=== PATIENT | male | born 1995 | race Caucasian/White ===

== ENCOUNTER 2016-12-30 21:07 | Inpatient (IN) | payer OTHER ==
[~2016-12-30] VITALS: Ht 177.8 cm; Wt 72.6 kg
[2016-12-31] MEDS ORDERED: MAGNESIUM HYDROXIDE 30 ML LIQUID UDC PO PRN
[2016-12-31] MEDS ORDERED: ACETAMINOPHEN 325 MG TABLET PO PRN
[2016-12-31] MEDS ORDERED: LOPERAMIDE HCL 2 MG CAPSULE PO PRN ×2
[2016-12-31] MEDS ORDERED: CLONIDINE HCL 0.1 MG TABLET PO PRN
[2016-12-31] MEDS ORDERED: LORAZEPAM 1 MG TABLET PO PRN ×2
[2016-12-31] MEDS ORDERED: LORAZEPAM 2 MG/1 ML VIAL IM PRN
[2016-12-31] MEDS ORDERED: BUPRENORPHINE HCL 2 MG TAB.SUBL SL PRN
[2016-12-31] MEDS ORDERED: ONDANSETRON 4 MG/2 ML VIAL IM PRN
[2016-12-31] MEDS ORDERED: MIRALAX 17 GM POWD.PACK PO PRN
[2016-12-31] MEDS ORDERED: METHOCARBAMOL 750 MG TABLET PO PRN
[2016-12-31] MEDS ORDERED: MAG HYDROX/AL HYDROX/SIMETH 30 ML LIQUID UDC PO PRN
[2016-12-31] MEDS ORDERED: ONDANSETRON ODT 4 MG TAB.RAPDIS SL PRN
[2016-12-31] MEDS ORDERED: DICYCLOMINE HCL 20 MG TABLET PO PRN
[2016-12-31 00:30] VITALS: BP 108/53
[2016-12-31] MEDS ORDERED: THIAMINE HCL 200 MG/2 ML VIAL IM ONE ×2 (01:00→06:00)
[2016-12-31 04:44] VITALS: BP 98/60
[2016-12-31 08:39] VITALS: BP 97/60
[2016-12-31] MEDS: THIAMINE HCL 100 MG TABLET PO SCH (08:40)
[2016-12-31] MEDS: FOLIC ACID 1 MG TABLET PO SCH (08:40)
[2016-12-31] MEDS: MULTIVITAMINS,THERAPEUTIC TABLET PO SCH (08:40)
[2016-12-31] MEDS ORDERED: TUBERCULIN,PURIF.PROT.DERIV. 5 TU/0.1 ML TEST ID ONE (09:00)
[2016-12-31 09:35] LABS: *AMPHETAMINE, URINE NEGATIVE (NEGATIVE); *BARBITURATE, URINE NEGATIVE (NEGATIVE); *CANNABINOID, URINE POSITIVE (NEGATIVE); *COCCAINE, URINE NEGATIVE (NEGATIVE); *OPIATE, URINE POSITIVE (NEGATIVE); *PHENCYCLIDINE SCREEN,URINE NEGATIVE (NEGATIVE)
[2016-12-31] MEDS ORDERED: DIAZEPAM 10 MG TABLET PO PRN ×2 (13:45)
[2016-12-31] MEDS ORDERED: DIAZEPAM 5 MG TABLET PO PRN (13:45)
[2016-12-31 14:00] VITALS: BP 104/66
[2016-12-31] MEDS: BUPRENORPHINE HCL 2 MG TAB.SUBL SL SCH ×3 (14:24→21:26)
[2016-12-31] MEDS: DIAZEPAM 10 MG TABLET PO SCH ×3 (14:24→21:26)
[2016-12-31 15:00] LABS: ALANINE AMINOTRANSFERASE 273 U/L (16-63); ALBUMIN 3.7 g/dL (3.4-5.0); ALKALINE PHOSPHATASE 67 U/L (50-136); AMYLASE 53 U/L (25-115); ASPARTATE AMINOTRANSFERASE 146 U/L (15-37); BILIRUBIN,TOTAL 0.4 mg/dL (0.2-1.0); CALCIUM 8.7 mg/dL (8.5-10.1); CARBON DIOXIDE 32 mmol/L (21-32); CHLORIDE 104 mmol/L (98-107); CREATININE 0.9 mg/dL (0.6-1.3); GFR 105 mL/min (>60); GLUCOSE 93 mg/dL (74-106); LIPASE 72 U/L (73-393); MAGNESIUM 1.8 mg/dL (1.8-2.4); POTASSIUM 3.9 mmol/L (3.5-5.1); SODIUM SERUM 141 mmol/L (136-145); TOTAL PROTEIN, SERUM 7.1 g/dL (6.4-8.2); UREA NITROGEN, BLOOD 11 mg/dL (7-18)
[2016-12-31 15:05] LABS: ETHANOL < 3 MG/DL (0-0)
[2016-12-31 15:10] LABS: THYROID STIMULATING HORMONE 0.462 mIU/mL (0.358-3.740)
[2016-12-31 15:13] LABS: BASOPHILS % (AUTO) 0.6 % (0.0-2.0); EOSINOPHILS # (AUTO) 0.3 K/uL (0.0-0.7); EOSINOPHILS % (AUTO) 5.1 % (0.0-7.0); HEMATOCRIT 43.2 % (40.0-50.0); HEMOGLOBIN 14.6 g/dL (14.0-18.0); LYMPHOCYTES # (AUTO) 2.6 K/uL (0.8-4.8); LYMPHOCYTES % (AUTO) 45.9 % (20.5-51.5); MEAN CORPUSCULAR HEMOGLOBIN 28.6 uug (27.0-31.0); MEAN CORPUSCULAR HGB CONC 34 g/dL (32.0-37.0); MEAN CORPUSCULAR VOLUME 84.4 fL (82.0-92.0); MONOCYTES # (AUTO) 0.5 K/uL (0.1-1.30); MONOCYTES % (AUTO) 9.2 % (0.0-11.0); NEUTROPHILS # (AUTO) 2.2 K/uL (1.8-8.9); NEUTROPHILS % (AUTO) 39.2 % (38.5-71.5); PLATELET COUNT (AUTO) 198 K/uL (150-450); RED BLOOD CELL COUNT(AUTO) 5.11 MIL/uL (4.70-6.10); RED CELL DISTRIBUTION WIDTH 12.7 % (11.5-14.5); WHITE BLOOD COUNT (AUTO) 5.6 K/uL (4.0-11.2)
[2016-12-31 15:19] LABS: HIV-1 p24 ANTIGEN NON REACTIVE (NONREACTIVE); HIV-1/2 ANTIBODY NON REACTIVE (NONREACTIVE)
[2016-12-31] MEDS: IBUPROFEN 600 MG TABLET PO PRN ×2 (16:11→22:42)
[2016-12-31 17:30] VITALS: BP 131/81
[2016-12-31] MEDS: GABAPENTIN 400 MG CAPSULE PO SCH ×2 (18:17→21:26)
[2016-12-31 20:20] VITALS: BP 127/67
[2016-12-31] MEDS: diphenhydrAMINE 50 MG CAPSULE PO PRN (22:48)
[2017-01-01 00:32] VITALS: BP 109/63
[2017-01-01 04:15] VITALS: BP 98/61
[2017-01-01] MEDS: PANTOPRAZOLE SODIUM 40 MG TABLET.DR PO SCH (06:17)
[2017-01-01 08:15] VITALS: BP 100/60
[2017-01-01] MEDS: DIAZEPAM 10 MG TABLET PO SCH ×3 (08:40→20:56)
[2017-01-01] MEDS: GABAPENTIN 400 MG CAPSULE PO SCH (08:40)
[2017-01-01] MEDS: MULTIVITAMINS,THERAPEUTIC TABLET PO SCH (08:40)
[2017-01-01] MEDS: FOLIC ACID 1 MG TABLET PO SCH (08:40)
[2017-01-01] MEDS: THIAMINE HCL 100 MG TABLET PO SCH (08:40)
[2017-01-01] MEDS: BUPRENORPHINE HCL 2 MG TAB.SUBL SL SCH ×3 (08:41→20:56)
[2017-01-01 12:45] VITALS: BP 138/83
[2017-01-01] MEDS: IBUPROFEN 600 MG TABLET PO PRN ×2 (12:47→22:54)
[2017-01-01] MEDS: GABAPENTIN 300 MG CAPSULE PO SCH ×3 (12:59→20:56)
[2017-01-01] MEDS ORDERED: GABAPENTIN 400 MG CAPSULE PO SCH (13:00)
[2017-01-01] MEDS ORDERED: DIAZEPAM 10 MG TABLET PO ONE (13:00)
[2017-01-01] MEDS: HYDROXYZINE PAMOATE 25 MG CAPSULE PO PRN ×2 (13:36→22:54)
[2017-01-01] MEDS: CLONIDINE HCL 0.1 MG TABLET PO SCH ×2 (14:08→20:58)
[2017-01-01] MEDS: BACLOFEN 20 MG TABLET PO SCH ×2 (14:08→20:56)
[2017-01-01 17:00] VITALS: BP 134/94
[2017-01-01 20:51] VITALS: BP 131/74
[2017-01-01] MEDS: MUPIROCIN 2% OINT 22 GM TUBE NS SCH (20:55)
[2017-01-01] MEDS ORDERED: BISACODYL 10 MG SUPP.RECT RC PRN (22:00)
[2017-01-01] MEDS ORDERED: BISACODYL 5 MG TABLET.DR PO ONE ×2 (22:14→22:15)
[2017-01-01] MEDS: diphenhydrAMINE 50 MG CAPSULE PO PRN (22:54)
[2017-01-02 00:20] VITALS: BP 106/66
[2017-01-02 04:25] VITALS: BP 109/69
[2017-01-02] MEDS: PANTOPRAZOLE SODIUM 40 MG TABLET.DR PO SCH (06:40)
[2017-01-02 08:00] VITALS: BP 120/73
[2017-01-02] MEDS: CLONIDINE HCL 0.1 MG TABLET PO SCH ×3 (08:55→15:00)
[2017-01-02] MEDS: DIAZEPAM 5 MG TABLET PO SCH ×4 (08:55→22:02)
[2017-01-02] MEDS: FOLIC ACID 1 MG TABLET PO SCH (08:55)
[2017-01-02] MEDS: MULTIVITAMINS,THERAPEUTIC TABLET PO SCH (08:55)
[2017-01-02] MEDS: GABAPENTIN 300 MG CAPSULE PO SCH ×4 (08:55→22:01)
[2017-01-02] MEDS: BACLOFEN 20 MG TABLET PO SCH ×3 (08:55→22:01)
[2017-01-02] MEDS: THIAMINE HCL 100 MG TABLET PO SCH (09:00)
[2017-01-02] MEDS ORDERED: BUPRENORPHINE HCL 2 MG TAB.SUBL SL SCH (09:00)
[2017-01-02] MEDS: MUPIROCIN 2% OINT 22 GM TUBE NS SCH ×2 (09:04→21:00)
[2017-01-02 09:05] LABS: ALBUMIN 3.3 g/dL (3.4-5.0); BILIRUBIN,DIRECT 0.1 mg/dL (0.0-0.2); BILIRUBIN,TOTAL 0.2 mg/dL (0.2-1.0); CALCIUM 8.3 mg/dL (8.5-10.1); CREATININE 0.8 mg/dL (0.6-1.3); MAGNESIUM 1.8 mg/dL (1.8-2.4); POTASSIUM 3.9 mmol/L (3.5-5.1); TOTAL PROTEIN, SERUM 6.2 g/dL (6.4-8.2)
[2017-01-02 09:13] LABS: BASOPHILS % (AUTO) 0.7 % (0.0-2.0); EOSINOPHILS # (AUTO) 0.3 K/uL (0.0-0.7); EOSINOPHILS % (AUTO) 4.9 % (0.0-7.0); HEMATOCRIT 40.8 % (40.0-50.0); HEMOGLOBIN 14.1 g/dL (14.0-18.0); LYMPHOCYTES # (AUTO) 2.6 K/uL (0.8-4.8); LYMPHOCYTES % (AUTO) 45.6 % (20.5-51.5); MEAN CORPUSCULAR HEMOGLOBIN 28.8 uug (27.0-31.0); MEAN CORPUSCULAR HGB CONC 35 g/dL (32.0-37.0); MEAN CORPUSCULAR VOLUME 83.5 fL (82.0-92.0); MONOCYTES # (AUTO) 0.5 K/uL (0.1-1.30); MONOCYTES % (AUTO) 9.2 % (0.0-11.0); NEUTROPHILS # (AUTO) 2.2 K/uL (1.8-8.9); NEUTROPHILS % (AUTO) 39.6 % (38.5-71.5); PLATELET COUNT (AUTO) 186 K/uL (150-450); RED BLOOD CELL COUNT(AUTO) 4.89 MIL/uL (4.70-6.10); RED CELL DISTRIBUTION WIDTH 12.6 % (11.5-14.5); WHITE BLOOD COUNT (AUTO) 5.6 K/uL (4.0-11.2)
[2017-01-02 12:00] VITALS: BP 127/68
[2017-01-02] MEDS: BISACODYL 5 MG TABLET.DR PO PRN (14:35)
[2017-01-02] MEDS: BENZOCAINE ORAL CARE 12 ML BOTTLE MM PRN (15:30)
[2017-01-02] MEDS: BUPRENORPHINE HCL 2 MG TAB.SUBL SL SCH ×2 (15:30→22:02)
[2017-01-02 16:00] VITALS: BP 116/74
[2017-01-02] MEDS ORDERED: CLONIDINE HCL 0.1 MG TABLET PO PRN (16:00)
[2017-01-02] MEDS: IBUPROFEN 600 MG TABLET PO PRN (16:07)
[2017-01-02 20:00] VITALS: BP 114/65
[2017-01-03] VITALS: BP 131/83
[2017-01-03] MEDS: BENZOCAINE ORAL CARE 12 ML BOTTLE MM PRN (02:07)
[2017-01-03] MEDS: BISACODYL 5 MG TABLET.DR PO PRN (02:07)
[2017-01-03] MEDS: diphenhydrAMINE 50 MG CAPSULE PO PRN (02:07)
[2017-01-03] MEDS: IBUPROFEN 600 MG TABLET PO PRN ×2 (02:08→15:17)
[2017-01-03 04:00] VITALS: BP 125/86
[2017-01-03 05:22] LABS: HCV AB >11.0 s/co ratio (0.0-0.9); HEPATITIS B CORE AB, IgM Negative (Negative); HEPATITIS B SURFACE AG Negative (Negative)
[2017-01-03] MEDS: PANTOPRAZOLE SODIUM 40 MG TABLET.DR PO SCH (07:29)
[2017-01-03 08:00] VITALS: BP 108/61
[2017-01-03] MEDS: GABAPENTIN 300 MG CAPSULE PO SCH ×4 (08:56→20:26)
[2017-01-03] MEDS: MULTIVITAMINS,THERAPEUTIC TABLET PO SCH (08:56)
[2017-01-03] MEDS: THIAMINE HCL 100 MG TABLET PO SCH (08:56)
[2017-01-03] MEDS: MUPIROCIN 2% OINT 22 GM TUBE NS SCH ×2 (08:56→20:25)
[2017-01-03] MEDS: BACLOFEN 20 MG TABLET PO SCH ×3 (08:56→20:25)
[2017-01-03] MEDS: DIAZEPAM 5 MG TABLET PO SCH ×3 (08:56→20:26)
[2017-01-03] MEDS: BUPRENORPHINE HCL 2 MG TAB.SUBL SL SCH ×3 (08:56→20:27)
[2017-01-03] MEDS: FOLIC ACID 1 MG TABLET PO SCH (08:56)
[2017-01-03 12:00] VITALS: BP 126/84
[2017-01-03] MEDS ORDERED: LIDOCAINE VISCUS 2% 15 ML UDC MM PRN (13:15)
[2017-01-03] MEDS: HYDROXYZINE PAMOATE 25 MG CAPSULE PO PRN (15:33)
[2017-01-03 16:00] VITALS: BP 134/86
[2017-01-03 20:00] VITALS: BP 131/92
[2017-01-04] VITALS: BP 135/85
[2017-01-04] MEDS: IBUPROFEN 600 MG TABLET PO PRN ×2 (00:45→09:36)
[2017-01-04] MEDS: diphenhydrAMINE 50 MG CAPSULE PO PRN (00:45)
[2017-01-04] MEDS: HYDROXYZINE PAMOATE 25 MG CAPSULE PO PRN ×2 (00:46→21:47)
[2017-01-04 04:00] VITALS: BP 128/78
[2017-01-04] MEDS: PANTOPRAZOLE SODIUM 40 MG TABLET.DR PO SCH (07:21)
[2017-01-04 08:00] VITALS: BP 108/65
[2017-01-04] MEDS ORDERED: DIAZEPAM 5 MG TABLET PO SCH ×2 (09:00)
[2017-01-04] MEDS ORDERED: BUPRENORPHINE HCL 2 MG TAB.SUBL SL SCH (09:00)
[2017-01-04] MEDS: FOLIC ACID 1 MG TABLET PO SCH (09:20)
[2017-01-04] MEDS: MULTIVITAMINS,THERAPEUTIC TABLET PO SCH (09:20)
[2017-01-04] MEDS: THIAMINE HCL 100 MG TABLET PO SCH (09:20)
[2017-01-04] MEDS: BACLOFEN 20 MG TABLET PO SCH ×3 (09:20→21:47)
[2017-01-04] MEDS: MUPIROCIN 2% OINT 22 GM TUBE NS SCH ×2 (09:20→21:56)
[2017-01-04] MEDS: GABAPENTIN 300 MG CAPSULE PO SCH ×4 (09:20→21:47)
[2017-01-04 12:00] VITALS: BP 128/87
[2017-01-04 13:11] LABS: *AMPHETAMINE, URINE NEGATIVE (NEGATIVE); *BARBITURATE, URINE NEGATIVE (NEGATIVE); *CANNABINOID, URINE NEGATIVE (NEGATIVE); *COCCAINE, URINE NEGATIVE (NEGATIVE); *OPIATE, URINE NEGATIVE (NEGATIVE); *PHENCYCLIDINE SCREEN,URINE NEGATIVE (NEGATIVE)
[2017-01-04 16:00] VITALS: BP 116/74
[2017-01-04 20:00] VITALS: BP 139/93
[2017-01-05] VITALS: BP 123/75
[2017-01-05] MEDS: PANTOPRAZOLE SODIUM 40 MG TABLET.DR PO SCH (06:50)
[2017-01-05 08:10] VITALS: BP 124/76
[2017-01-05] MEDS: GABAPENTIN 300 MG CAPSULE PO SCH (08:11)
[2017-01-05] MEDS: BACLOFEN 20 MG TABLET PO SCH (08:11)
[2017-01-05] MEDS: MULTIVITAMINS,THERAPEUTIC TABLET PO SCH (08:11)
[2017-01-05] MEDS: THIAMINE HCL 100 MG TABLET PO SCH (08:11)
[2017-01-05] MEDS: FOLIC ACID 1 MG TABLET PO SCH (08:11)
[2017-01-05] MEDS: MUPIROCIN 2% OINT 22 GM TUBE NS SCH (08:13)
[2017-01-05] MEDS ORDERED: PANT40TA2 PO (08:48)
[2017-01-05] MEDS ORDERED: DIPH50CA37 PO (08:48)
[2017-01-05] MEDS ORDERED: Baclofen PO (08:48)
[2017-01-05] MEDS ORDERED: Ibuprofen PO (08:48)
[2017-01-05] MEDS ORDERED: HYDR-3895 PO (08:48)
[2017-01-05] MEDS ORDERED: Gabapentin PO (08:48)
[2017-01-05] MEDS: IBUPROFEN 600 MG TABLET PO PRN (09:57)
== END 2017-01-05 11:03 | disposition home or self-care (01) | DRG 895 ==
LOC: SRC 23:56
PROVIDERS: ADMIT Internal Medicine; ATTEND Internal Medicine
PROC: HZ2ZZZZ Detoxification Services for Substance Abuse Treatment (ICD-10-PCS; principal; 2016-12-30)
PROC: HZ31ZZZ Individual Counseling for Substance Abuse Treatment, Behavioral (ICD-10-PCS; 2017-01-02)
PROC: HZ41ZZZ Group Counseling for Substance Abuse Treatment, Behavioral (ICD-10-PCS; 2017-01-03)
DX: F11.23 Opioid dependence with withdrawal (principal); F13.230 Sedative, hypnotic or anxiolytic dependence with withdrawal, uncomplicated; B19.20 Unspecified viral hepatitis C without hepatic coma; Z59.0 Homelessness; F17.210 Nicotine dependence, cigarettes, uncomplicated; F10.10 Alcohol abuse, uncomplicated; Y90.9 Presence of alcohol in blood, level not specified; F41.0 Panic disorder [episodic paroxysmal anxiety]; K27.7 Chronic peptic ulcer, site unspecified, without hemorrhage or perforation; Z22.322 Carrier or suspected carrier of Methicillin resistant Staphylococcus aureus; Z76.5 Malingerer [conscious simulation]; F32.9 Major depressive disorder, single episode, unspecified; Z59.1 Inadequate housing
CPT/HCPCS: 36415; 70030-TC; 80307; 83690; 83735; 84443; 85025; 86580; 86592; 86705; 86803; 87340; 87806; A9150; G6040-TC; Q0162; Q0163

== ENCOUNTER 2017-03-01 15:12 | Inpatient (IN) | payer OTHER ==
[~2017-03-01] VITALS: Ht 177.8 cm; Wt 67.1 kg
[~2017-03-01 15:12] MED LIST: Baclofen PO; DIPH50CA37 PO; Gabapentin PO; HYDR-3895 PO; Ibuprofen PO; PANT40TA2 PO
[2017-03-02] VITALS (8 sets, daily range): BP systolic 104–115; BP diastolic 60–76
--- NOTE | 2017-03-02 00:35 | NUR ---
Pre-Admission Pre-admission assessment performed in the intake department of [facility]. Pt is a 21 yo male who is A&O x4 and ambulatory with a steady gait. Pt does not appear intoxicated. He answers all questions appropriately but appears anxious with mild hand tremors. Vitals: B/P 107/60, HR 112, RR 18, O2 sat 98%, T 98.2. He reports generalized body aches and discomfort. Pt states that he has been using Heroin and BZD's. Admission to continue on the [facility] detox unit.
[2017-03-02] MEDS ORDERED: DIAZEPAM 5 MG TABLET PO PRN (01:15)
[2017-03-02] MEDS ORDERED: LOPERAMIDE HCL 2 MG CAPSULE PO PRN ×2 (01:15)
[2017-03-02] MEDS ORDERED: MAG HYDROX/AL HYDROX/SIMETH 30 ML LIQUID UDC PO PRN (01:15)
[2017-03-02] MEDS ORDERED: MIRALAX 17 GM POWD.PACK PO PRN (01:15)
[2017-03-02] MEDS ORDERED: IBUPROFEN 400 MG TABLET PO PRN (01:15)
[2017-03-02] MEDS ORDERED: DIAZEPAM 10 MG TABLET PO PRN ×2 (01:15)
[2017-03-02] MEDS ORDERED: ACETAMINOPHEN 325 MG TABLET PO PRN (01:15)
[2017-03-02] MEDS ORDERED: diphenhydrAMINE 50 MG CAPSULE PO PRN (01:15)
[2017-03-02] MEDS ORDERED: LORAZEPAM 2 MG/1 ML VIAL IM PRN (01:15)
[2017-03-02] MEDS ORDERED: MAGNESIUM HYDROXIDE 30 ML LIQUID UDC PO PRN (01:15)
[2017-03-02] MEDS ORDERED: CLONIDINE HCL 0.1 MG TABLET PO PRN (01:15)
[2017-03-02 01:35] LABS: *AMPHETAMINE, URINE POSITIVE (NEGATIVE); *BARBITURATE, URINE POSITIVE (NEGATIVE); *CANNABINOID, URINE POSITIVE (NEGATIVE); *COCCAINE, URINE POSITIVE (NEGATIVE); *OPIATE, URINE POSITIVE (NEGATIVE); *PHENCYCLIDINE SCREEN,URINE NEGATIVE (NEGATIVE)
[2017-03-02] MEDS: BUPRENORPHINE HCL 2 MG TAB.SUBL SL PRN ×3 (01:42→09:42)
[2017-03-02] MEDS ORDERED: DIAZEPAM 10 MG TABLET ONE (01:43)
--- NOTE | 2017-03-02 01:43 | NUR ---
PRN Subutex and Valium administration Pt c/o chills, body aches, anxiety and restlessness. His pupils are dilated and he is frequently shifting in bed. COWS score 12 and CIWA 10. PRN Subutex and Valium administered.
[2017-03-02] MEDS ORDERED: BUPRENORPHINE HCL 2 MG TAB.SUBL SL ONE ×3 (01:44→14:45)
[2017-03-02] MEDS ORDERED: METHOCARBAMOL 750 MG TABLET ONE (01:45)
--- NOTE | 2017-03-02 02:20 | NUR ---
ADMISSION Pt is a 21 yo male admitted to [facility] on 03/02/17 at 0055 for medically supervised detox. He is A&O and ambulatory with a steady gait. Body and skin check performed and he was oriented to the unit. He does not appear intoxicated and answers all questions appropriately. Pt denies food or drug allergies. Vital signs in intake were B/P 107/60, HR 112, RR 18, O2 sat 98%, T 98.2. He has generalized body aches and discomfort. Pt is 5'10" and weighs 148lbs. He reports poor appetite recently. Lung sounds clear, PERRLA 4mm, brisk capillary refill, bowel sounds present, skin is intact. Last BM was today. He has track sawyer on bilateral upper extremities. History of Use 1) Xanax or Klonopin 5-10mg per day for 2 years. Last used 2mg on 03/01/17 at 0700. He has used BZD's for 9 years. 2) Heroin IV 3 grams per day for the past 2 years. Last used 0.25 grams on 03/01/17 at 0700. He has used heroin for 5 years total. 3) Cocaine IV 0.5 grams "occasionally". Last used 0.25 grams 02/27/17. He has used cocaine for 5 years. 4) Methamphetamine IV 0.5 grams "occasionally". Last used 0.25 grams 02/28/17. He has used methamphetamine for 5 years. 5) LSD 2 tabs "occasionally". Last used 02/25/17. He has used LSD for 5 years. 6) Marijuana 0.5 grams "occasionally". Last used 02/28/17 Treatment History 1) [place], [place] 12/2016 2) [facility] 3) [place], [place] 4) A treatment facility in [place], [place] in 2013 for 30 days Pt smokes 1 pack of cigarettes per day. Pt was at [facility] 12/2016 and relapsed after 2 weeks of sobriety. Symptoms when he doesn't use include "shakey, sweaty, anxious, can't sleep, can't eat, everything hurts". He decided to come to treatment today because, "I got arrested". Pt's longest period of sobriety was "a couple months" in 2014. He currently lives in a car and does not have a primary care physician. COWS on admission is 14 and CIWA 10. Admission orders received. Pt educated regarding use of the call light and all questions answered. Fall and seizure precautions in place. Bed is down with call light in reach. Addendum: 03/02/17 at 0651 by EILEEN CARRILLO RN He has a PMH of Hepatitis C, right shoulder surgery, w/d related seizures, and anxiety. Last seizure was 6 months ago.
--- NOTE | 2017-03-02 02:43 | NUR ---
PRN Subutex and Valium reassessment PRN Subutex and Valium barely effective. Pt reports that he has had very little relief of symptoms. COWS 12 and CIWA 8.
[2017-03-02] MEDS: METHOCARBAMOL 750 MG TABLET PO PRN (02:44)
[2017-03-02] MEDS: HYDROXYZINE PAMOATE 25 MG CAPSULE PO PRN (02:45)
--- NOTE | 2017-03-02 02:45 | NUR ---
PRN Robaxin, Vistaril, and Benadryl Pt reports anxiety, restlessness, chills, body aches, restless legs, and inability to sleep. PRN Robaxin, Vistaril, and Benadryl administered.
[2017-03-02] MEDS ORDERED: HYDROXYZINE PAMOATE 25 MG CAPSULE ONE (02:52)
[2017-03-02] MEDS ORDERED: diphenhydrAMINE 50 MG CAPSULE ONE (02:53)
[2017-03-02 02:58] LABS: BASOPHILS # (AUTO) 0.1 K/uL (0.0-8.0); BASOPHILS % (AUTO) 0.5 % (0.0-2.0); EOSINOPHILS # (AUTO) 0.1 K/uL (0.0-0.7); EOSINOPHILS % (AUTO) 0.3 % (0.0-7.0); HEMATOCRIT 39.1 % (40-50); HEMOGLOBIN 13.9 G/DL (14.0-18.0); LYMPHOCYTES # (AUTO) 1.6 K/UL (0.8-4.8); LYMPHOCYTES % (AUTO) 8.6 % (20.5-51.5); MEAN CORPUSCULAR HEMOGLOBIN 29.3 UUG (27.0-31.0); MEAN CORPUSCULAR HGB CONC 35 g/dL (32.0-37.0); MEAN CORPUSCULAR VOLUME 82.8 FL (82.0-92.0); MONOCYTES # (AUTO) 0.8 K/UL (0.1-1.30); MONOCYTES % (AUTO) 4.1 % (0.0-11.0); NEUTROPHILS % (AUTO) 86.5 % (38.5-71.5); PLATELET COUNT (AUTO) 167 K/UL (150-450); RED BLOOD CELL COUNT(AUTO) 4.72 MIL/UL (4.7-6.1); WHITE BLOOD COUNT (AUTO) 18.6 K/UL (4.0-11.2)
[2017-03-02 03:11] LABS: ETHANOL < 3 MG/DL (0-0)
[2017-03-02 03:14] LABS: ALANINE AMINOTRANSFERASE 136 U/L (16-63); ALKALINE PHOSPHATASE 56 U/L (50-136); ASPARTATE AMINOTRANSFERASE 60 U/L (15-37); BILIRUBIN,TOTAL 0.6 mg/dL (0.2-1.0); CARBON DIOXIDE 30 mmol/L (21-32); CHLORIDE 102 mmol/L (98-107); GLUCOSE 110 mg/dL (74-106); MAGNESIUM 1.8 mg/dL (1.8-2.4); POTASSIUM 3.4 mmol/L (3.5-5.1); TOTAL PROTEIN, SERUM 7.2 g/dL (6.4-8.2); UREA NITROGEN, BLOOD 10 mg/dL (7-18)
--- NOTE | 2017-03-02 03:45 | NUR ---
PRN Robaxin, Vistaril, and Benadryl reassessment PRN Robaxin, Vistaril, and Benadryl barely effective. Pt reports very little relief of symptoms and he is still unable to sleep. Encouraged relaxation.
[2017-03-02] MEDS ORDERED: POTASSIUM CHLORIDE 20 MEQ TAB.PRT.SR PO ONE (04:00)
[2017-03-02] MEDS ORDERED: POTASSIUM CHLORIDE 20 MEQ TAB.PRT.SR ONE (04:13)
--- NOTE | 2017-03-02 04:20 | NUR ---
K Dur administered for K level 3.4
--- NOTE | 2017-03-02 04:25 | NUR ---
PRN Subutex administration Pt c/o chills, body aches, restlessness. His pupils are dilated and he is unable to keeps his legs still when lying in bed. Mild hand tremors observed. COWS score 12. PRN Subutex administered.
--- NOTE | 2017-03-02 07:25 | NUR ---
END OF SHIFT Report provided to day shift nurse. Pt is lying in bed resting. Pt is a 21 yo male admitted to [facility] today for Opiate and BZD dependence. He is A&O and ambulatory. NKA, full code, regular diet. Pt was experiencing s/s of withdrawal upon admission. PRN Subutex x2, Valium, Robaxin, Benadryl, and Vistaril administered. Last COWS 2 and CIWA 2. He drank 1150mL and slept for 2 hours. Fall and seizure precautions in place
--- NOTE | 2017-03-02 07:30 | NUR ---
Start of Shift Report from night nurse: Pt is here for Benzo r/t Xanax or Klonopin 5-10mg/d, Opiates r/t Heroin 3g IV/d, Cocaine 0.5g Occasionally, Methamphetamine 0.5g occas. LSD unknown dosage used occasionally, and Marijuana unknown dose used occasionally; no taper started at this time. Pt is a full code, Regular Diet, NKA, fall and seizure precautions ordered. HHx: Hep C+, Right Shoulder Surgery, Seizures r/t w/d 6 mths ago and anxiety, multiple relapses with returns here. V/S stable, Skin is intact with tracts on BUE's. PRN Subutex with COWS 15-12, gabapentin, Zofran IM, Clonidine and Benadryl to help the pt w/d and to sleep. Last COWS 3 CIWA 3. No new orders or recommendations endorsed to me. Pt is asleep in room. Will cont. to monitor the pt.
[2017-03-02] MEDS ORDERED: CLON1TAB4 PO (07:57)
[2017-03-02] MEDS ORDERED: CLON2TAB4 PO (07:57)
[2017-03-02] MEDS: DICYCLOMINE HCL 20 MG TABLET PO PRN (09:41)
[2017-03-02] MEDS: MULTIVITAMINS,THERAPEUTIC TABLET PO SCH (09:42)
--- NOTE | 2017-03-02 09:42 | NUR ---
PRN Medication Administration Subutex, Valium Pt is in his room very anxiety, restlessness, pacing, c/o sweating, irritable, tremors felt, nausea, general pain 10/10, loss of appetite with breakfast and stomach cramps, has numbness and tingling, V/S stable, COWS 13 CIWA 8; PRN Valium 5mg, Subutex 4mg SL and Bentyl 20mg given with in parameters as ordered, pt refused Zofran. Will reassess in 1H.
--- NOTE | 2017-03-02 11:15 | NUR ---
Reassessment, New Orders Pt is in room resting in bed and no anxiety or irritability noted and denies stomach cramps; Subutex, Valium and Bentyl are effective. New orders for 5 day Subutex, 5 day Valium tapers, and Seroquel 100mg PO qHS. Will cont. to monitor the pt.
[2017-03-02] MEDS: BUPRENORPHINE HCL 2 MG TAB.SUBL SL SCH ×3 (13:25→20:47)
[2017-03-02] MEDS: DIAZEPAM 10 MG TABLET PO SCH ×3 (13:26→20:47)
[2017-03-02] MEDS ORDERED: DIAZEPAM 10 MG TABLET PO ONE (14:45)
[2017-03-02] MEDS ORDERED: GABAPENTIN 300 MG CAPSULE PO SCH (15:00)
--- NOTE | 2017-03-02 16:52 | NUR ---
Therapist encouraged client to attend daily group therapy sessions. Client responded by saying he would try to remember to attend the next group.
[2017-03-02] MEDS: GABAPENTIN 400 MG CAPSULE PO SCH ×2 (17:14→20:47)
--- NOTE | 2017-03-02 19:39 | NUR ---
End of Shift Report to night nurse: Pt is here for Benzo r/t Xanax or Klonopin 5-10mg/d, Opiates r/t Heroin 3g IV/d, Cocaine 0.5g Occasionally, Methamphetamine 0.5g occas. LSD unknown dosage used occasionally, and Marijuana unknown dose used occasionally; New orders for 5d Valium and 5d Subutex tapers ordered and started at 1300 today. Pt is a full code, Regular Diet, NKA, fall and seizure precautions ordered. HHx: Hep C+, Right Shoulder Surgery, Seizures r/t w/d 6 months ago and anxiety, multiple relapses with returns here. V/S stable, SKin is intact with tracts on BUE's. PRN Subutex with COWS 13 0900H, pt refused Zofran after c/o nausea, Valium 5mg CIWA 8, Bentyl 20mg, Seroquel 100mg HS. Last COWS 8 CIWA 9.
--- NOTE | 2017-03-02 20:11 | NUR ---
START OF SHIFT NOTE Pt is a 21 y/o male admitted for Xanax/Klonopin, Heroin, Cocaine, Meth, LSD, and Marijuana dependence and use. Pt has NKA but reported a PMH of Hep C, right shoulder surgery, w/d related seizures (6 months ago), and anxiety. Per day shift nurse pt was placed on a 5 day Valium and Subutex taper (day 1) and is tolerating medication well, with no s/e or a/r reported. Pt received Bentyl 20 mg PO PRN , Valium 5 mg PO PRN , and Subutex 4 mg PO PRN during the day shift. Last COW: 8 and CIWA: 9 (1600) At this time the pt has just returned to his room from a smoke break. Pt stated " I'm doing alright I just want my clothes back from laundry." Pt denies any pain/discomfort. Pt denies any other pain/discomfort. Pt was encouraged to notify staff of any changes in condition or of any concerns. Pt verbalized an understanding. All safety measures in place; side rails up x 2, bed locked and in low position, and call light within reach. Will continue to monitor.
[2017-03-03] VITALS: BP 114/76
[2017-03-03] MEDS: QUETIAPINE FUMARATE 100 MG TABLET PO PRN (00:18)
--- NOTE | 2017-03-03 00:21 | NUR ---
SEROQUEL PRN ADMINISTRATION Pt stated " Can I have something for sleep?" Seroquel 100 mg PO PRN was given. Pt was encouraged to notify staff of any changes in condition or of any concerns. Pt verbalized an understanding. All safety measures in place. Will monitor for effectiveness.
--- NOTE | 2017-03-03 01:21 | NUR ---
SEROQUEL PRN REASSESSMENT Pt is asleep in bed with no signs of discomfort/distress noted. Breathing is even and unlabored. PRN effective. All safety measures in place. Will continue to monitor.
[2017-03-03 04:00] VITALS: BP 93/60
--- NOTE | 2017-03-03 07:28 | NUR ---
END OF SHIFT NOTE Pt is a 21 y/o male admitted for Xanax/Klonopin, Heroin, Cocaine, Meth, LSD, and Marijuana dependence and use. Pt has NKA but reported a PMH of Hep C, right shoulder surgery, w/d related seizures (6 months ago), and anxiety. Pt was placed on a 5 day Valium and Subutex taper (day 2) and is tolerating medication well, with no s/e or a/r reported. Pt received Seroquel 100 mg PO PRN during the shift. Last COW: 0 and CIWA: 0 (0400). Pt slept for total of 6 hours. All safety measures in place; side rails up x 2, bed locked and in low position, and call light within reach. Will endorse to the oncoming nurse.
--- NOTE | 2017-03-03 07:30 | NUR ---
Start Of Shift Report received. Pt is a 21 y/o male admitted for Xanax/Klonopin, Heroin, Cocaine, Meth, LSD, and Marijuana dependence and use. Pt denies any allergies is full code regular diet continues on fall and seizure precautions. PMH of Hep C, right shoulder surgery, w/d related seizures (6 months ago), and anxiety. Pt continues his 5 day Valium and Subutex taper and is tolerating medication well. Pt received Seroquel 100 mg PO PRN last night for insomnia, medication effective per shift supervisor rn nurse. Last COW: 0 and CIWA: 0 (0400). Pt slept for total of 6 hours. fluids encouraged to help facilitate with detox process. All safety measures in place; side rails up x 2, bed locked and in low position, and call light within reach. will continue to monitor and provide support.
[2017-03-03 08:00] VITALS: BP 107/68
[2017-03-03] MEDS ORDERED: TUBERCULIN,PURIF.PROT.DERIV. 5 TU/0.1 ML TEST ID ONE (09:00)
[2017-03-03] MEDS: GABAPENTIN 400 MG CAPSULE PO SCH ×4 (09:00→21:43)
[2017-03-03] MEDS: DIAZEPAM 10 MG TABLET PO SCH ×3 (09:01→21:43)
[2017-03-03] MEDS: MULTIVITAMINS,THERAPEUTIC TABLET PO SCH (09:01)
[2017-03-03] MEDS: BUPRENORPHINE HCL 2 MG TAB.SUBL SL SCH ×3 (09:02→21:43)
[2017-03-03 12:00] VITALS: BP 96/62
[2017-03-03 14:06] LABS: HEPATITIS B SURFACE AG Negative (Negative)
[2017-03-03 16:00] VITALS: BP 120/69
--- NOTE | 2017-03-03 19:15 | NUR ---
End Of Shift Report given. Pt is a 21 y/o male admitted for Xanax/Klonopin, Heroin, Cocaine, Meth, LSD, and Marijuana dependence and use. Pt denies any allergies is full code regular diet continues on fall and seizure precautions. Pt continues his 5 day Valium and Subutex taper and is tolerating medication well. Last COW: 8 and CIWA: 4 (1600). Pt did not receive any PRN medications during my shift. Detox medication effective at reducing withdrawal symptoms. Patient encouraged to attend group therapies/sessions to learn new coping skills to recent relapse, noted attending and participating, patient denies SI/HI. Pt ate all meals total fluid intake was 2566ml with 2 void and 0 bowel movement. Safety measures in place. Call light kept within reach. Patient endorsed to night nurse nurse, all pertinent information discussed.
[2017-03-03 20:00] VITALS: BP 120/62
--- NOTE | 2017-03-03 20:11 | NUR ---
START OF SHIFT NOTE Pt is a 21 y/o male admitted for Xanax/Klonopin, Heroin, Cocaine, Meth, LSD, and Marijuana dependence and use. Pt has NKA but reported a PMH of Hep C, right shoulder surgery, w/d related seizures (6 months ago), and anxiety. Per day shift nurse pt continues on a 5 day Valium and Subutex taper (day 2) and is tolerating medication well, with no s/e or a/r reported. Pt didn't receive any PRNS during the shift. during the day shift. Last COW: 8 and CIWA: 4 (1600). At this time pt just returned to his room. Pt stated " I feel okay I was shaky earlier I'm doing alright." Pt denies any pain/discomfort. Pt denies any other pain/discomfort. Pt was encouraged to notify staff of any changes in condition or of any concerns. Pt verbalized an understanding. All safety measures in place; side rails up x 2, bed locked and in low position, and call light within reach. Will continue to monitor.
[2017-03-04] VITALS: BP 113/76
--- NOTE | 2017-03-04 04:00 | NUR ---
LUDMILA PARAG, VITALS REFUSED Pt refused to be assessed and have vitals taken at this time. Pt was encouraged x 3 with risks and benefits explained, but the pt still refused. All safety measures in place. Will continue to monitor. Addendum: 03/04/17 at 0532 by NETTIE ARRINGTON LVN Amended: Links added.
--- NOTE | 2017-03-04 07:10 | NUR ---
END OF SHIFT NOTE Pt is a 21 y/o male admitted for Xanax/Klonopin, Heroin, Cocaine, Meth, LSD, and Marijuana dependence and use. Pt has NKA but reported a PMH of Hep C, right shoulder surgery, w/d related seizures (6 months ago), and anxiety. Pt continues on a 5 day Valium and Subutex taper (day 3) and is tolerating medication well, with no s/e or a/r reported. Pt didn't receive any PRNS during the shift. Last COW: 0 and CIWA: 0 (0000). Pt slept for total of 7 hours. All safety measures in place; side rails up x 2, bed locked and in low position, and call light within reach. Will endorse to the oncoming nurse.
--- NOTE | 2017-03-04 07:45 | NUR ---
START OF SHIFT Received report from night shift supervisor nurse. 21 year old male patient admitted on 03/02/17 for benzo, cocaine, methamphetamine, and LSD. Pt has been started on a 5 day Valium and 5 day Subutex taper and has been tolerating well. No acute distress over night. Pt is Hep C positive, reports history of withdrawal induced seizures and anxiety. BNo PRN medications were needed or administered at night. Most recent COWS and CIWA 0. Pt is resting in bed at this time. Pt continues to refuse blood draw, pt education provided on importance of being compliant with MD orders. V/S remain WNL. All needs met, safety precautions are in place, will continue to monitor.
[2017-03-04 08:15] VITALS: BP 98/64
[2017-03-04] MEDS ORDERED: BUPRENORPHINE HCL 2 MG TAB.SUBL SL SCH (09:00)
[2017-03-04] MEDS: DIAZEPAM 5 MG TABLET PO SCH ×4 (09:42→21:47)
[2017-03-04] MEDS: GABAPENTIN 400 MG CAPSULE PO SCH (09:42)
[2017-03-04] MEDS: MULTIVITAMINS,THERAPEUTIC TABLET PO SCH (09:42)
--- NOTE | 2017-03-04 09:48 | NUR ---
PRN MIRALAX Pt complains of constipation, fluids encouraged. PRN Miralax administered as ordered, will reassess.
--- NOTE | 2017-03-04 10:50 | NUR ---
REASSESSMENT Miralax was ineffective, pt encouraged to ambulate and drink prune juice.
[2017-03-04] MEDS ORDERED: KETOROLAC TROMETHAMINE 30 MG INJ IM PRN (12:00)
[2017-03-04] MEDS: GABAPENTIN 300 MG CAPSULE PO SCH ×3 (12:48→21:47)
[2017-03-04] MEDS ORDERED: DIAZEPAM 5 MG TABLET PO ONE (13:00)
[2017-03-04] MEDS ORDERED: BUPRENORPHINE HCL 2 MG TAB.SUBL SL ONE (13:00)
[2017-03-04 13:24] VITALS: BP 116/80
[2017-03-04] MEDS: BUPRENORPHINE HCL 2 MG TAB.SUBL SL SCH ×2 (15:09→21:48)
[2017-03-04] MEDS: BACLOFEN 10 MG TABLET PO SCH ×2 (15:09→21:47)
[2017-03-04] MEDS ORDERED: BISACODYL 10 MG SUPP.RECT RC PRN (15:45)
[2017-03-04 17:09] VITALS: BP 125/66
--- NOTE | 2017-03-04 19:05 | NUR ---
END OF SHIFT Endorsed to shift manager nurse. 21 year old male patient admitted on 03/02/17 for benzo, cocaine, methamphetamine, and LSD. Pt has been started on a 5 day Valium and 5 day Subutex taper and has been tolerating well. No acute distress over night. Pt is Hep C positive, reports history of withdrawal induced seizures and anxiety. PRN miralax was administered and not effective. Most recent COWS 5 and CIWA 5. Pt is positive for MRSA of nares, education provided. Contact isolation in place. To start antibx ointment at 2100. Pt continues to refuse blood draw, pt education provided on importance of being compliant with MD orders. V/S remain WNL. Pt encouraged to attend activities and groups, pt stated he felt too sick to go to afternoon group and requested to rest instead. Pt stated he will go to evening group. All needs met, safety precautions are in place, shift manager nurse will continue to monitor.
--- NOTE | 2017-03-04 19:36 | NUR ---
START OF SHIFT NOTE Pt is a 21 y/o male admitted for Xanax/Klonopin, Heroin, Cocaine, Meth, LSD, and Marijuana dependence and use. Pt has NKA but reported a PMH of Hep C, right shoulder surgery, w/d related seizures (6 months ago), and anxiety. Per day shift nurse pt continues on a 5 day Valium and Subutex taper (day 3) and is tolerating medication well, with no s/e or a/r reported. Pt received Miralax and Valium 5 mg PO PRN x1 during the day shift. Last COW: 5 and CIWA: 5 (1600). At this time pt is in his room. Pt denies any pain/discomfort. Pt was encouraged to notify staff of any changes in condition or of any concerns. Pt verbalized an understanding. All safety measures in place; side rails up x 2, bed locked and in low position, and call light within reach. Will continue to monitor.
[2017-03-04 20:00] VITALS: BP 119/83
[2017-03-04] MEDS: CLONIDINE HCL 0.1 MG TABLET PO SCH (21:00)
[2017-03-04] MEDS: MUPIROCIN 2% OINT 22 GM TUBE NS SCH (21:49)
[2017-03-05] VITALS: BP 110/77
--- NOTE | 2017-03-05 04:00 | NUR ---
COW, CIWA, AND VITALS REFUSED Pt refused to be assessed and have vitals taken at this time. Pt was encouraged x 3 with risks and benefits explained, but the pt still refused. All safety measures in place. Will continue to monitor. Addendum: 03/05/17 at 0635 by NETTIE ARRINGTON LVN Amended: Links added.
--- NOTE | 2017-03-05 06:57 | NUR ---
END OF SHIFT NOTE Pt is a 21 y/o male admitted for Xanax/Klonopin, Heroin, Cocaine, Meth, LSD, and Marijuana dependence and use. Pt has NKA but reported a PMH of Hep C, right shoulder surgery, w/d related seizures (6 months ago), and anxiety. Pt continues on a 5 day Valium and Subutex taper (day 4) and is tolerating medication well, with no s/e or a/r reported. Pt didn't receive any PRNS during the shift. Last COW: 0 and CIWA: 0 (0000). Pt slept for total of 6 hours. All safety measures in place; side rails up x 2, bed locked and in low position, and call light within reach. Will endorse to the oncoming nurse.
--- NOTE | 2017-03-05 07:33 | NUR ---
START OF SHIFT NOTE: Received report from maintenance technician 3rd shift nurse. Pt is a 21 y/o male admitted 6 for Xanax/Klonopin, Heroin, Cocaine, Meth, LSD, and Marijuana dependence. Pt is on a 5 day Valium and 5 day Subutex taper. Tolerating well. Pt is on contact isolation for + MRSA of nares. Pt is alert and oriented X4. Color good, skin warm and dry. Respirations even and unlabored. Pt resting in bed. Safety precautions observed. Call light within reach. Will continue to monitor.
[2017-03-05 08:08] VITALS: BP 100/60
[2017-03-05] MEDS: DIAZEPAM 5 MG TABLET PO SCH ×3 (09:25→20:22)
[2017-03-05] MEDS: CLONIDINE HCL 0.1 MG TABLET PO SCH ×3 (09:25→21:00)
[2017-03-05] MEDS: BACLOFEN 10 MG TABLET PO SCH ×3 (09:25→20:22)
[2017-03-05] MEDS: MULTIVITAMINS,THERAPEUTIC TABLET PO SCH (09:25)
[2017-03-05] MEDS: BUPRENORPHINE HCL 2 MG TAB.SUBL SL SCH ×3 (09:25→20:23)
[2017-03-05] MEDS: GABAPENTIN 300 MG CAPSULE PO SCH ×4 (09:25→20:21)
[2017-03-05] MEDS: MUPIROCIN 2% OINT 22 GM TUBE NS SCH ×2 (09:26→20:23)
[2017-03-05] MEDS ORDERED: BUPRENORPHINE HCL 2 MG TAB.SUBL SL ONE (12:00)
[2017-03-05] MEDS ORDERED: DIAZEPAM 5 MG TABLET PO ONE (12:00)
--- NOTE | 2017-03-05 12:26 | NUR ---
Valium 5 mg po and Subutex 2mg sl X1 given
[2017-03-05 12:49] VITALS: BP 137/86
--- NOTE | 2017-03-05 13:30 | NUR ---
Pt feels less anxious and pain diminished after Valium and Subutex X1
[2017-03-05] MEDS: BISACODYL 5 MG TABLET.DR PO PRN (14:30)
--- NOTE | 2017-03-05 14:51 | NUR ---
VSS COWS 8 CIWA 9 c/o anxiety, muscle aches, sweating. Also c/o constipation. Dulcolax 10mg po prn given
[2017-03-05] MEDS: HYDROXYZINE PAMOATE 25 MG CAPSULE PO PRN (17:06)
--- NOTE | 2017-03-05 17:14 | NUR ---
Vistaril 50mg po prn given for anxiety.
[2017-03-05 17:26] VITALS: BP 107/64
--- NOTE | 2017-03-05 18:00 | NUR ---
Pt states [place] w[place] "helped a little."
--- NOTE | 2017-03-05 18:41 | NUR ---
END OF SHIFT NOTE: Report given to shift engineer nurse. Pt is a 21 y/o male admitted 6 for Xanax/Klonopin, Heroin, Cocaine, Meth, LSD, and Marijuana dependence. Pt is on a 5 day Valium and 5 day Subutex taper. Tolerating well. Pt is on contact isolation for + MRSA of nares. Pt is alert and oriented X4. Color good, skin warm and dry. Respirations even and unlabored. Vital signs have remained stable throughout shift. Last COWS 8 CIWA 9 @ 1500. Valium 5 mg po and Subutex 2mg sl X1 given @ 1230. Dulcolax 10mg po prn given @ 1450. Vistaril 50mg po prn given for anxiety @ 1700. Pt resting in bed. Safety precautions observed. Call light within reach.
--- NOTE | 2017-03-05 19:15 | NUR ---
START OF SHIFT Received 21 year old male patient admitted on 03/02/17 for Benzo, Heroin, Cocaine, Meth, LSD and Marijuana dependency. Pt is full code with NKA. He reports a PMHx of Hep C, right shoulder surgery, withdrawal relayed to seizures 6 months ago, and anxiety. Pt reports using Xanax/Klonopin 5-10 mg daily for 2 years. Last dose was 2 mg on 03/01/17. Heroin IV 3 grams daily for 2 years. Last dose was 0.25 gram on 03/01/17. Cocaine 0.5 gram occasionally, Meth 0.5 gram occasionally, LSD occasionally and Marijuana occasionally. Pt placed on 5 day Valium and 5 day Subutex taper started on 03/02/17 and tolerating well. Per endorsement, pt received PRN Vistrail and Dulcolax. Pt also received one time order of Valium 5 mg and Subutex 2 mg. Pt is alert and oriented x4, breathing is even and unlabored. Safety measures in place. Will continue to monitor.
[2017-03-05 20:00] VITALS: BP 139/81
[2017-03-05] MEDS: DICYCLOMINE HCL 20 MG TABLET PO PRN (21:34)
--- NOTE | 2017-03-05 21:34 | NUR ---
PRN BENTYL/SEROQUEL/ZOFRAN Pt complains of nausea and abdominal cramps and also complains of inability to sleep. PRN Bentyl, Seroquel and Zofran administered as ordered. Breathing is even and unlabored, respirations 16, safety measures in place. Will continue to monitor effectiveness of medications.
[2017-03-05] MEDS: ONDANSETRON ODT 4 MG TAB.RAPDIS SL PRN (21:35)
[2017-03-05] MEDS: QUETIAPINE FUMARATE 100 MG TABLET PO PRN (21:35)
--- NOTE | 2017-03-05 22:33 | NUR ---
PRN Bentyl/Seroquel/Zofran reassessment PRN medications effective. Pt is lying comfortably with bed with eyes closed and is noted to be asleep. Respirations 16, breathing is even and unlabored. No facial grimacing noted. Safety measures in place. Will continue to monitor.
--- NOTE | 2017-03-06 | NUR ---
VITALS REFUSED/COWS & CIWA DEFERRED Pt refused 0000 vitals. Risks/benefits were explained, pt still refused. COWS & CIWA deferred d/t order is Q4H while awake. Pt is lying in bed with eyes closed noted to be asleep. Respirations 16, breathing even and unlabored. Safety measures in place. Will monitor.
--- NOTE | 2017-03-06 04:00 | NUR ---
VITALS REFUSED/COWS & CIWA DEFERRED Pt refused 0400 vitals. Risks/benefits were explained, pt still refused. COWS & CIWA deferred d/t order is Q4H while awake. Pt is lying in bed with eyes closed noted to be asleep. Respirations 16, breathing even and unlabored. Safety measures in place. Will monitor.
--- NOTE | 2017-03-06 06:57 | NUR ---
END OF SHIFT Pt is a 21 year old male patient admitted on 03/02/17 for Benzo, Heroin, Cocaine, Meth, LSD and Marijuana dependency. Pt is full code with NKA. He reports a PMHx of Hep C, right shoulder surgery, withdrawal relayed to seizures 6 months ago, and anxiety. Pt placed on 5 day Valium and 5 day Subutex taper started on 03/02/17 and tolerating well. At 2134 he received PRN Bentyl, Seroquel and Zofran. He slept a total of 7 hrs, Intake:1301 mL Void:x3 BM:0 COWS:7, CIWA: 6. Pt remains alert and oriented x4, breathing is even and unlabored. Safety measures in place. Endorsed to oncoming shift.
--- NOTE | 2017-03-06 07:40 | NUR ---
START OF SHIFT NOTE: Received report from night worker nurse. Pt is a 21 y/o male admitted 6 for Xanax/Klonopin, Heroin, Cocaine, Meth, LSD, and Marijuana dependence. Pt is on a 5 day Valium and 5 day Subutex taper. Tolerating well. Pt is on contact isolation for + MRSA of nares. Pt is alert and oriented X4. Color good, skin warm and dry. Respirations even and unlabored. Pt resting in bed. Safety precautions observed. Call light within reach. Will continue to monitor.
[2017-03-06 08:00] VITALS: BP 110/68
[2017-03-06] MEDS: CLONIDINE HCL 0.1 MG TABLET PO SCH ×3 (09:00→21:00)
--- NOTE | 2017-03-06 09:00 | NUR ---
VSS COWS 8 CIWA 6 Pt c/o anxiety, body aches, sweating
[2017-03-06] MEDS: MUPIROCIN 2% OINT 22 GM TUBE NS SCH ×2 (09:37→22:24)
[2017-03-06] MEDS: BUPRENORPHINE HCL 2 MG TAB.SUBL SL SCH ×2 (09:37→22:24)
[2017-03-06] MEDS: BACLOFEN 10 MG TABLET PO SCH ×3 (09:38→22:23)
[2017-03-06] MEDS: MULTIVITAMINS,THERAPEUTIC TABLET PO SCH (09:38)
[2017-03-06] MEDS: DIAZEPAM 5 MG TABLET PO SCH ×2 (09:38→22:23)
[2017-03-06] MEDS: GABAPENTIN 300 MG CAPSULE PO SCH ×4 (09:38→22:22)
[2017-03-06] MEDS: HYDROXYZINE PAMOATE 25 MG CAPSULE PO PRN ×2 (12:20→23:21)
--- NOTE | 2017-03-06 12:30 | NUR ---
Pt c/o anxiety. Vistaril 50mg po prn administered.
[2017-03-06 12:58] VITALS: BP 146/78
--- NOTE | 2017-03-06 13:30 | NUR ---
Pt states feels less anxious after Vistaril prn
[2017-03-06] MEDS ORDERED: DIAZEPAM 10 MG TABLET PO ONE (16:45)
[2017-03-06] MEDS ORDERED: BUPRENORPHINE HCL 2 MG TAB.SUBL SL ONE (16:45)
[2017-03-06] MEDS: BISACODYL 5 MG TABLET.DR PO PRN (17:05)
--- NOTE | 2017-03-06 17:07 | NUR ---
VSS COWS 8 Valium 10mg X1 and Subutex 4mg X1 given
[2017-03-06 18:00] VITALS: BP 120/78
--- NOTE | 2017-03-06 18:00 | NUR ---
Pt feels improved after Subutex and Valium X1 Body aches improved.
--- NOTE | 2017-03-06 18:47 | NUR ---
END OF SHIFT NOTE: Report given to mixed livestock farmer nurse. Pt is a 21 y/o male admitted 03-02-17 for Xanax/Klonopin, Heroin, Cocaine, Meth, LSD, and Marijuana dependence. Pt is on a 5 day Valium and 5 day Subutex taper. Tolerating well. Pt is on contact isolation for + MRSA of nares. Pt is alert and oriented X4. Color good, skin warm and dry. Respirations even and unlabored. Vital signs have remained stable throughout shift. Last COWS 8 CIWA 6 @ 1500. Vistaril 50mg po prn administered @ 1230. Dulcolax 10mg po prn given @ 1700 and Valium 10mg X1 and Subutex 4mg X1 given @ 1700. Pt resting in bed. Safety precautions observed. Call light within reach.
[2017-03-06 20:00] VITALS: BP 139/73
[2017-03-06] MEDS: QUETIAPINE FUMARATE 100 MG TABLET PO PRN (23:20)
--- NOTE | 2017-03-06 23:20 | NUR ---
PRN SEROQUEL/VISTARIL Pt complains of anxiety and inability to sleep. Pt observed to be restless. PRN Seroquel and Vistaril administered as ordered. Breathing is even and unlabored, safety measures in place. Will monitor effectiveness.
--- NOTE | 2017-03-07 00:20 | NUR ---
PRN SEROQUEL/VISTARIL REASSESSMENT PRN medication effective. Pt is lying in bed with eyes closed noted to be asleep. Respirations 16, breathing is even and unlabored. Safety measures in place. Will continue to monitor.
--- NOTE | 2017-03-07 04:00 | NUR ---
VITALS REFUSED/COWS & CIWA DEFERRED Pt refused 0400 vitals. Risks/benefits were explained, pt still refused. COWS & CIWA deferred d/t order is Q4H while awake. Pt is lying in bed with eyes closed noted to be asleep. Respirations 16, breathing even and unlabored. Safety measures in place. Will continue to monitor.
--- NOTE | 2017-03-07 07:13 | NUR ---
END OF SHIFT Pt is a 21 year old male patient admitted on 03/02/17 for Benzo, Heroin, Cocaine, Meth, LSD and Marijuana dependency. Pt is full code with NKA. He reports a PMHx of Hep C, right shoulder surgery, withdrawal relayed to seizures 6 months ago, and anxiety. Pt continues on 5 day Valium and 5 day Subutex taper started on 03/02/17 and tolerating well. At 2320 he received PRN Seroquel and Vistaril. He slept a total of 6hrs, Intake: 1400 mL, Void: x2, BM:0. COWS:8, CIWA:5. Pt remains alert and oriented x4, breathing is even and unlabored. Safety measures in place. Endorsed to oncoming shift.
[2017-03-07 08:00] VITALS: BP 107/58
--- NOTE | 2017-03-07 08:00 | NUR ---
START OF SHIFT Pt 21 y/o male admitted for opiate and bzd withdrawal. Pt received in room on bed with eyes closed resting, but easily arousable to name. Pt alert and oriented to name, place, and time. Perrla. Skin warm and slightly moist to touch. Respirations even and unlabored. Pt with some agitation noted, stated, " I'm not ready to leave yet!". It was reported that pt slept for 6 hours last night. Bed on lowest position with side rails x2 up for safety. Call light within reach. No distress noted at this time.
[2017-03-07] MEDS: CLONIDINE HCL 0.1 MG TABLET PO SCH ×3 (09:00→21:11)
[2017-03-07] MEDS ORDERED: BUPRENORPHINE HCL 2 MG TAB.SUBL SL SCH (09:00)
[2017-03-07] MEDS ORDERED: DIAZEPAM 5 MG TABLET PO SCH (09:00)
--- NOTE | 2017-03-07 09:00 | NUR ---
MEDICATION Pt refused the catapres 0.1mg po scheduled at 0900 even with encouragement.
[2017-03-07] MEDS: MULTIVITAMINS,THERAPEUTIC TABLET PO SCH (09:02)
[2017-03-07] MEDS: BACLOFEN 10 MG TABLET PO SCH ×3 (09:02→21:10)
[2017-03-07] MEDS: MUPIROCIN 2% OINT 22 GM TUBE NS SCH ×2 (09:02→21:10)
[2017-03-07] MEDS: GABAPENTIN 300 MG CAPSULE PO SCH ×4 (09:03→21:10)
[2017-03-07] MEDS: HYDROXYZINE PAMOATE 25 MG CAPSULE PO PRN (11:52)
[2017-03-07] MEDS: DICYCLOMINE HCL 20 MG TABLET PO PRN (11:52)
--- NOTE | 2017-03-07 11:58 | NUR ---
PRN Pt states has generalized body pain 5/10, and states, " I'm hurting". Motrin po prn per MD order given and tolerated well.
--- NOTE | 2017-03-07 11:58 | NUR ---
PRN Pt states stomach is cramping. Bentyl po prn per MD order given and tolerated well.
--- NOTE | 2017-03-07 11:58 | NUR ---
PRN Pt anxious and restless, and pressured speech noted. Vistaril po prn per MD order given and tolerated well.
[2017-03-07 12:00] VITALS: BP 122/84
--- NOTE | 2017-03-07 12:58 | NUR ---
YRN MCKEON Pt observed in dining room watching television at this time.
--- NOTE | 2017-03-07 12:58 | NUR ---
PRN EVAL Pt with no c/o stomach cramps at this time.
--- NOTE | 2017-03-07 12:58 | NUR ---
PRN EVAL Pt remains slightly anxious.
--- NOTE | 2017-03-07 14:41 | NUR ---
MEDICATION Pt refused catapres 0.1mg po schedule at 1500 even with encouragement.
[2017-03-07] MEDS: BUPRENORPHINE HCL 2 MG TAB.SUBL SL SCH ×2 (15:28→21:10)
[2017-03-07] MEDS: DIAZEPAM 5 MG TABLET PO SCH ×2 (15:28→21:10)
[2017-03-07 16:00] VITALS: BP 118/68
[2017-03-07] MEDS: METHOCARBAMOL 750 MG TABLET PO PRN (16:46)
--- NOTE | 2017-03-07 16:46 | NUR ---
PRN Pt states has general body aches /. robaxin po prn per MD order given and tolerated well.
[2017-03-07] MEDS: BISACODYL 5 MG TABLET.DR PO PRN (17:02)
--- NOTE | 2017-03-07 17:03 | NUR ---
PRN Pt with c/o constipation and stated that MOM does not work. Dulcolax po prn per MD order given and tolerated well. Addendum: 03/07/17 at 1721 by CESIA KOHLI RN addt'l MOM= milk of magnyasmin
--- NOTE | 2017-03-07 17:46 | NUR ---
YRN MCKEON Pt observed in room on bed watching television.
--- NOTE | 2017-03-07 18:56 | NUR ---
END OF SHIFT Pt 21 y/o male admitted for opiate and bzd withdrawal. Pt alert and oriented to name, place, and time. Perrla. Skin warm and dry to touch. Respirations even and unlabored. Bilateral hand tremors noted at times. Pt observed mostly in room throughout the day. Pt attended the group activity in the morning, but did not attend the group activity at 1530 because pt stated was too tired. Pt was seen by Dr. Cifuentes today. Modifications were made to pt's valium and subutex taper today. Pt medication compliant and tolerated well. No ASE noted. Bed on lowest position [facility] side rails x2 up for safety. Call light within reach. No distress noted at this time.
[2017-03-07 20:00] VITALS: BP 110/77
--- NOTE | 2017-03-07 20:00 | NUR ---
Start of Shift Patient is a 21-year old, male, admitted for Opiate and Benzo Dependence. 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 Pt on modified Valium and Subutex Tapers, last doses scheduled for 03/08/2017 in the AM. Pt is AAOx4, no SOB nor significant anxiety noted. Pt is ambulatory with steady gait. No skin issues. Fall, universal and safety prec in place. Call light within reach. No facial grimacing noted. Latest COWS=4, CIWA=4. Will continue to monitor.
[2017-03-07] MEDS: QUETIAPINE FUMARATE 100 MG TABLET PO PRN (23:54)
--- NOTE | 2017-03-07 23:54 | NUR ---
RN note PRN Seroquel Pt c/o sleeplessness. Administered Seroquel 100 mg PO. Will reassess.
[2017-03-08] VITALS: BP 104/72
--- NOTE | 2017-03-08 00:55 | NUR ---
RN note reassess Pt asleep on bed, no SOB nor facial grimacing noted. Seroquel effective.
[2017-03-08 04:00] VITALS: BP 108/78
--- NOTE | 2017-03-08 07:15 | NUR ---
End of Shift Patient is a 21-year old, male, admitted for Opiate and Benzo Dependence. 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 Pt on modified Valium and Subutex Tapers, last doses scheduled for 03/08/2017 in the AM. Pt is AAOx4, no SOB nor significant anxiety noted. Pt is ambulatory with steady gait. No skin issues. Fall, universal and safety prec in place. Call light within reach. No facial grimacing noted. Latest COWS=3, CIWA=2, slept for 5 hours. Will continue to monitor.
--- NOTE | 2017-03-08 07:30 | NUR ---
START OF SHIFT Pt 21 y/o male admitted for opiate and bzd withdrawal. Pt received in room on bed awake watching television. Pt alert and oriented to name, place, and time. Perrla. Skin warm and slightly moist to touch. Respirations even and unlabored. It was reported that pt slept for 5 hours last night. Bed on lowest position with side rails x2 up for safety. Call light within reach. No distress noted at this time.
[2017-03-08 08:06] VITALS: BP 166/61
[2017-03-08] MEDS: MULTIVITAMINS,THERAPEUTIC TABLET PO SCH (08:30)
[2017-03-08] MEDS: BACLOFEN 10 MG TABLET PO SCH ×3 (08:30→21:52)
[2017-03-08] MEDS: GABAPENTIN 300 MG CAPSULE PO SCH ×4 (08:30→21:53)
[2017-03-08] MEDS: MUPIROCIN 2% OINT 22 GM TUBE NS SCH ×2 (08:31→21:52)
--- NOTE | 2017-03-08 08:46 | NUR ---
CATAPRES Pt in room on bed with eyes closed resting, but easily arousable to name. Pt with BZ=428/61. Pt refusing to take the catapres 0.1mg po scheduled at 0900, even with encouragement. Pt gets agitated when I try to encourage pt to take the catapres and responds, " No I don't want to take it! Just leave me alone! It's getting annoying!". Addendum: 03/08/17 at 1020 by CESIA KOHLI RN MD frazier.
[2017-03-08] MEDS ORDERED: DIAZEPAM 5 MG TABLET PO SCH (09:00)
[2017-03-08] MEDS: CLONIDINE HCL 0.1 MG TABLET PO SCH ×3 (09:00→21:00)
[2017-03-08] MEDS ORDERED: BUPRENORPHINE HCL 2 MG TAB.SUBL SL SCH (09:00)
[2017-03-08 12:00] VITALS: BP 148/66
--- NOTE | 2017-03-08 12:01 | NUR ---
ENDORSEMENT Pt endorsed to nurse. VS wnl. No distress noted at this time.
[2017-03-08] MEDS: HYDROXYZINE PAMOATE 25 MG CAPSULE PO PRN ×2 (13:29→22:00)
[2017-03-08] MEDS: METHOCARBAMOL 750 MG TABLET PO PRN ×2 (13:29→22:00)
[2017-03-08] MEDS: ONDANSETRON ODT 4 MG TAB.RAPDIS SL PRN (13:30)
--- NOTE | 2017-03-08 13:40 | NUR ---
PRN Medication Administrations Pt is in room with irritability and anxiety with foot taping and pacing, c/o muscle tension, mild nausea, generalized pain 8/10 numbness and tingling, V/S stable; PRN Vistaril 50mg, Robaxin 750mg, Zofran 4mg SL given with scheduled gabapentin 900mg, pt refused Toradol 30mg IM inj and refused Ibuprofen PO. Will reassess in 1H.
[2017-03-08] MEDS ORDERED: CLON0.1T14 PO (13:46)
[2017-03-08] MEDS ORDERED: GABA-534 PO (13:46)
[2017-03-08] MEDS ORDERED: MUPI22OI2 NS (13:46)
[2017-03-08] MEDS ORDERED: IBUP-1481 PO (13:46)
[2017-03-08] MEDS ORDERED: BACL10TA PO (13:46)
[2017-03-08] MEDS ORDERED: QUET100T PO (13:46)
[2017-03-08] MEDS ORDERED: HYDR-3895 PO (13:46)
--- NOTE | 2017-03-08 14:45 | NUR ---
Reassessment Pt is in room eating and watching TV, no anxiety noted and denies nausea; Vistaril 50mg, Robaxin 750mg, Zofran 4mg SL given are effective. Will cont. to monitor the pt.
[2017-03-08 17:52] VITALS: BP 127/84
--- NOTE | 2017-03-08 19:43 | NUR ---
End of Shift Report to night nurse: Pt is here for Benzo r/t Xanax or Klonopin 5-10mg/d, Opiates r/t Heroin 3g IV/d, Cocaine 0.5g Occasionally, Methamphetamine 0.5g occas. LSD unknown dosage used occasionally, and Marijuana unknown dose used occasionally; New orders for 5d Valium and 5d Subutex tapers ordered and started at 1300 today. Pt is a full code, Regular Diet, NKA, fall and seizure precautions ordered. HHx: Hep C+, MRSA nares with Bactroban ordered, Right Shoulder Surgery, Seizures r/t w/d 6 months ago and anxiety, multiple relapses with returns here. V/S stable, Skin is intact with tracts on BUE's. PRN Vistaril, Zofran and Robaxin given during my shift. No hallucinations or delusions or suicidal ideations during my shift. New orders for d/c tomorrow. Last COWS 6 CIWA 3.
[2017-03-08 20:00] VITALS: BP 130/86
--- NOTE | 2017-03-08 20:00 | NUR ---
Start of Shift Patient is a 21-year old, male, admitted for Opiate and Benzo Dependence. 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 Pt on modified Valium and Subutex Tapers, last doses scheduled for 03/08/2017 in the AM. Pt is AAOx4, no SOB nor significant anxiety noted. Pt is ambulatory with steady gait. No skin issues. Fall, universal and safety prec in place. Call light within reach. No facial grimacing noted. Latest COWS=4, CIWA=3. Will continue to monitor.
[2017-03-08] MEDS: QUETIAPINE FUMARATE 100 MG TABLET PO PRN (22:00)
--- NOTE | 2017-03-08 22:00 | NUR ---
RN note PRN Robaxin, Vistaril and Seroquel Pt c/o generalized body aches=6/10, increasing anxiety and sleeplessness. Administered Robaxin 750 mg PO, Vistaril 50 mg PO and Seroquel 100 mg PO. Will reassess.
--- NOTE | 2017-03-08 23:00 | NUR ---
RN note reassess Pt verbalized feeling sleepy and "less anxious" with generalized body aches=2-3/10. PRN meds given were effective.
[2017-03-09] VITALS: BP 126/82
[2017-03-09 04:00] VITALS: BP 129/78
--- NOTE | 2017-03-09 07:13 | NUR ---
End of Shift Patient is a 21-year old, male, admitted for Opiate and Benzo Dependence. 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 Pt on modified Valium and Subutex Tapers, last doses scheduled for 03/08/2017 in the AM. Pt is AAOx4, no SOB nor significant anxiety noted. Pt is ambulatory with steady gait. No skin issues. Fall, universal and safety prec in place. Call light within reach. No facial grimacing noted. Latest COWS=4, CIWA=3, slept for 3 hours. Endorsed to AM shift nurse for continuity of care.
--- NOTE | 2017-03-09 07:30 | NUR ---
start of shift note: received pt from steward/stewardess night nurse, pt is in stable condition at this time. [facility] for benzo,opiate,meth withdrawal/dependence. pt is verbalized he is still in withdrawal, despite extending taper. pt states he wants to stay here and not go to treatment, pt states he will not provide urine or sign discharge paperwork. pt has been med seeking throughout his stay. pts last cows 4 and ciwa 3. will have pt seen by MD before discharge
[2017-03-09 08:16] LABS: *AMPHETAMINE, URINE NEGATIVE (NEGATIVE); *BARBITURATE, URINE NEGATIVE (NEGATIVE); *CANNABINOID, URINE NEGATIVE (NEGATIVE); *COCCAINE, URINE NEGATIVE (NEGATIVE); *OPIATE, URINE NEGATIVE (NEGATIVE); *PHENCYCLIDINE SCREEN,URINE NEGATIVE (NEGATIVE)
[2017-03-09] MEDS: MUPIROCIN 2% OINT 22 GM TUBE NS SCH (09:00)
[2017-03-09] MEDS: CLONIDINE HCL 0.1 MG TABLET PO SCH (09:00)
[2017-03-09] MEDS: MULTIVITAMINS,THERAPEUTIC TABLET PO SCH (09:24)
[2017-03-09] MEDS: GABAPENTIN 300 MG CAPSULE PO SCH (09:25)
[2017-03-09] MEDS: BACLOFEN 10 MG TABLET PO SCH (09:25)
--- NOTE | 2017-03-09 10:05 | NUR ---
discharge note:pt left the unit in stable condition, pt was medically cleared for discharge, pt tried to bargain with , regarding to stay longer to get more medications. pt teaching was administered and pt verbalized understanding. pt left with all personal belongings. pt will be transferred to [facility]
== END 2017-03-09 10:01 | disposition other institution (70) | DRG 895 ==
LOC: SRC 03-02 00:21
PROVIDERS: ADMIT Internal Medicine; ATTEND Internal Medicine
PROC: HZ2ZZZZ Detoxification Services for Substance Abuse Treatment (ICD-10-PCS; principal; 2017-03-02)
PROC: HZ31ZZZ Individual Counseling for Substance Abuse Treatment, Behavioral (ICD-10-PCS; principal; 2017-03-02)
PROC: HZ41ZZZ Group Counseling for Substance Abuse Treatment, Behavioral (ICD-10-PCS; 2017-03-04)
DX: F11.23 Opioid dependence with withdrawal (principal); Z22.322 Carrier or suspected carrier of Methicillin resistant Staphylococcus aureus; F41.0 Panic disorder [episodic paroxysmal anxiety]; Z59.0 Homelessness; K27.7 Chronic peptic ulcer, site unspecified, without hemorrhage or perforation; F16.10 Hallucinogen abuse, uncomplicated; F15.10 Other stimulant abuse, uncomplicated; F17.210 Nicotine dependence, cigarettes, uncomplicated; B19.20 Unspecified viral hepatitis C without hepatic coma; F12.10 Cannabis abuse, uncomplicated; D64.9 Anemia, unspecified; F14.23 Cocaine dependence with withdrawal; E87.6 Hypokalemia; I15.9 Secondary hypertension, unspecified; F32.9 Major depressive disorder, single episode, unspecified; D72.823 Leukemoid reaction
CPT/HCPCS: 36415; 70030-TC; 80307; 80324; 80345; 80349; 80353; 80361; 83735; 85025; 86580; 86705; 87340; 87806; A4663; G0480; J1885; Q0162; Q0163

== ENCOUNTER 2017-03-19 22:53 | Emergency (ER) | payer OTHER ==
[~2017-03-19] VITALS: Ht 177.8 cm; Wt 70.3 kg
[~2017-03-19 22:53] MED LIST changes: +BACL10TA PO; -Baclofen PO; +CLON0.1T14 PO; -DIPH50CA37 PO; +GABA-534 PO; +IBUP-1953 PO; +MUPI22OI2 NS; +QUET100T PO
[2017-03-19] MEDS ORDERED: LORAZEPAM 0.5 MG TABLET PO ONE (23:30)
[2017-03-19] MEDS ORDERED: LORAZEPAM 1 MG TABLET ONE (23:33)
--- NOTE | 2017-03-19 23:33 | NUR ---
Patient discharged to in stable conditon. Written and verbal after care instructions given. Patient verbalizes understanding of instructions. PATIENT REFUSED TO STAY FOR MONITOR AFTER TAKING ATIVAN. PATIENT STATES IS WAITING FOR MOTHER FROM [facility] TO CALL BACK TO BED ADMITTED TO [facility]. JAMESET WALKERD OUT OF ER WITH STEADY GAIT TO "WAIT IN THE HOSPITAL LOBBY TO BE ADMITTED TO [facility]."
[2017-03-19 23:36] VITALS: BP 128/77
== END 2017-03-19 23:37 | disposition home or self-care (01) ==
LOC: ER 22:54
DX: F13.239 Sedative, hypnotic or anxiolytic dependence with withdrawal, unspecified (principal)
CPT/HCPCS: A4663